=== PATIENT | female | born 1960 | race Caucasian/White ===

== ENCOUNTER → 2018-08-27 | Outpatient (CLI) | payer OTHER ==
--- NOTE | 2018-08-27 13:44 | KCIC ---
EXAM: Lumbar spine MRI without contrast. HISTORY: Radiculopathy. TECHNIQUE: Multiplanar, multisequence magnetic resonance imaging of the lumbar spine was performed without contrast. COMPARISON: None. FINDINGS: There is mild lumbar levoscoliosis. There is mild retrolisthesis of L2 on L3 and minimal grade 1 anterolisthesis of L4 on L5. There is degenerative endplate remodeling with disc space narrowing and osteophytosis primarily at L5-L3, and to lesser extent, L1-L2. There is diffuse disc desiccation at the lumbar levels. The conus terminates at L1. There is a small Tarlov cyst within the sacral canal at S2. There is no suspicious osseous lesion. At L1-L2, there is a disc bulge and endplate remodeling. There is mild bilateral facet arthropathy. There is mild central canal stenosis. At L2-L3, there is a diffuse disc bulge and endplate osteophytosis. There is moderate right and mild left facet arthropathy. There is mild right greater than left foraminal stenosis. There is mild central canal stenosis. At L3-L4, there is a broad-based posterior central disc protrusion with minimal inferior extrusion and annular tear superimposed on a disc bulge and endplate osteophytosis. There is also a suspected left foraminal annular tear. There is mild bilateral facet arthropathy. There is hypertrophy of the ligamentum flavum. There are small incidental nerve root sheath cysts. There is mild bilateral foraminal stenosis. There is moderate to severe central canal stenosis. At L4-L5, there is a left foraminal disc protrusion and minimal superior extrusion superimposed on a disc bulge and endplate remodeling. There is moderate bilateral facet arthropathy. There is hypertrophy of the ligamentum flavum. There is mild left foraminal stenosis with abutment of the exiting left L4 nerve root. There is moderate central canal stenosis. At L5-S1, there is a disc bulge. There is mild bilateral facet arthropathy. IMPRESSION: 1. Multilevel degenerative change within the lumbar spine, described in detail above. This results in mild central canal stenosis at L1-L2, mild right greater than left foraminal and central canal stenosis at L2-L3, mild bilateral foraminal and moderate to severe central canal stenosis at L3-L4, and mild left foraminal and moderate central canal stenosis at L4-L5. 2. Mild scoliosis and mild listhesis of the aforementioned levels. Electronically signed by: Patricia Sims MD (08/27/2018 1:40 PM) [place] [id number]
== END | disposition home or self-care (01) ==
LOC: KCIC MRI 12:51
PROVIDERS: ATTEND Family Medicine
DX: M48.061 Spinal stenosis, lumbar region without neurogenic claudication (principal); M47.896 Other spondylosis, lumbar region; M41.86 Other forms of scoliosis, lumbar region; M43.16 Spondylolisthesis, lumbar region; M12.88 Other specific arthropathies, not elsewhere classified, other specified site; M51.26 Other intervertebral disc displacement, lumbar region; M53.88 Other specified dorsopathies, sacral and sacrococcygeal region
CPT/HCPCS: 72148

== ENCOUNTER → 2019-01-07 | Outpatient (CLI) | payer OTHER ==
--- NOTE | 2019-01-07 14:50 | KCIC ---
EXAM: Cervical and thoracic spine MRI without contrast. HISTORY: Pain. TECHNIQUE: Multiplanar, multisequence magnetic resonance imaging of the cervical spine an thoracic was performed without contrast. COMPARISON: Lumbar spine MRI dated 08/27/2018. FINDINGS: Cervical spine: There is and mild cervical kyphosis. There is mild anterolisthesis of C2 on C3 and C3 on C4 and C7 on T1. There is degenerative endplate remodeling with disc space narrowing, osteophytosis and Schmorl's node formation primarily at C3-C4 and C4-C5. There are few osseous hemangiomas. No suspicious osseous lesion is seen. There is deformation of the cervical spinal cord at multiple levels due to central canal stenosis. There is no convincing cervical spinal cord signal abnormality on axial images to suggest myelomalacia or edema. At C2-C3, there is no stenosis. At C3-C4, there is a posterior central disc protrusion superimposed on a disc bulge and endplate osteophytosis. There is mild right facet arthropathy. There is flattening of the ventral aspect of the spinal cord and mild central canal stenosis measuring 8.1 mm in anterior posterior dimension. At C4-C5, there is a broad-based posterior central disc protrusion and slight inferior extrusion superimposed on a disc bulge and endplate osteophytosis. There is uncovertebral arthropathy. There is deformation of the cervical spinal cord and moderate to severe central canal stenosis measuring 5.8 mm in anterior posterior dimension. At C5-C6, there is a broad-based right paracentral disc protrusion superimposed on a disc bulge and endplate osteophytosis. There is bilateral uncovertebral arthropathy. There are dilated nerve root sheath cysts within the neural foramina. There is mild left foraminal stenosis. There is deformation of the spinal cord and moderate to severe central canal stenosis measuring 5.8 mm in anterior posterior dimension. At C6-C7, there is a left paracentral disc protrusion superimposed on a disc bulge and endplate remodeling. There is uncovertebral arthropathy. There is deformation of the left ventral aspect of the spinal cord and mild central canal stenosis measuring 8.2 mm in anterior posterior dimension. Thoracic spine: There is mild thoracic scoliosis. There is minimal anterolisthesis at the upper thoracic vertebral levels. No thoracic spinal cord lesion is seen. No suspicious osseous lesion is seen. There is endplate remodeling at multiple levels. At T3-T4, there is right facet arthropathy. There is no stenosis. At T4-T5, there is right facet arthropathy. There is mild right foraminal stenosis. At T5-T6, there is right facet arthropathy. There is no stenosis. At T6-T7, there is a shallow left paracentral disc protrusion. There is left facet arthropathy. There is no stenosis. At T7-T8, there is a left paracentral disc protrusion. There is bilateral facet arthropathy. There is mild left foraminal stenosis. At T8-T9, there is a left paracentral disc protrusion. There is no stenosis. At T9-T10, there is a posterior central disc protrusion which slightly deforms the ventral aspect of the spinal cord. There is mild facet arthropathy. There is no stenosis. At T10-T11, there is mild facet arthropathy. There is no stenosis. At T11-T12, there is a dilated nerve root sheath cyst within the left neural foramen. There is mild facet arthropathy. There is no stenosis. At T12-L1, there is no stenosis. IMPRESSION: 1. Multilevel degenerative change within the cervical spine, described in detail above. This results in significant foraminal and central canal stenosis at the aforementioned cervical vertebral levels. No cervical spinal cord signal abnormality is seen to suggest myelomalacia or edema. 2. Multilevel degenerative change within the thoracic spine, described in detail above. There is mild foraminal stenosis at a few levels. 3. Degenerative change involving the lumbar spine. This is better characterized on the relatively recent MRI dated 08/27/2018. Electronically signed by: Patricia Sims MD (01/07/2019 2:46 PM) [id number]
== END | disposition home or self-care (01) ==
LOC: KCIC MRI 11:35
PROVIDERS: ATTEND Family Medicine
DX: M47.892 Other spondylosis, cervical region (principal); M48.02 Spinal stenosis, cervical region; M47.894 Other spondylosis, thoracic region; M48.04 Spinal stenosis, thoracic region; M47.896 Other spondylosis, lumbar region; M12.88 Other specific arthropathies, not elsewhere classified, other specified site; M51.24 Other intervertebral disc displacement, thoracic region; M25.78 Osteophyte, vertebrae; M40.292 Other kyphosis, cervical region; D18.09 Hemangioma of other sites
CPT/HCPCS: 72141; 72146

== ENCOUNTER → 2020-10-04 | Outpatient (CLI) | payer OTHER ==
--- NOTE | 2020-10-04 13:08 | KCIC ---
EXAMINATION: MRI RIGHT HAND WITHOUT IV CONTRAST CLINICAL HISTORY: LIKELY EIC VS GANGLION CYST AT RIGHT 1ST MCP. Pain associated with probable cyst for 6mths to one yr. TECHNIQUE: Multiplanar multisequential images obtained through the hand without intravenous contrast. COMPARISON: None FINDINGS: BONES/MARROW: No evidence of acute fracture or suspicious marrow replacing lesion. JOINTS: - Joint Fluid: Physiologic fluid in the imaged joints. - Erosions: None present. - Degenerative Changes: Not prominent. LIGAMENTS: No tears identified. Note the thumb ligaments are not well assessed on this hand protocol study. TENDONS: - Flexor Tendons: Within normal limits. - Extensor Tendons: Within normal limits. SOFT TISSUES: - Muscles: Normal. - Subcutaneous Tissues: Normal. - Ganglia: 6 mm cystic lesion along the volar aspect of the first MCP joint at the skin marker, compatible with a ganglion. IMPRESSION: 6 mm ganglion volar first MCP joint. Electronically signed by: David Farley DO (10/04/2020 1:05 PM) [id number]
== END ==
LOC: KCIC MRI 07:49
PROVIDERS: ATTEND Nurse Practitioner Family
DX: M67.441 Ganglion, right hand (principal)
CPT/HCPCS: 73218